=== PATIENT | female | born 1960 | race Caucasian/White ===

== ENCOUNTER → 2024-03-26 | Outpatient (CLI) | payer MEDICARE, MEDICAID, SELFPAY ==
[2024-03-24 10:59] LABS: Anion Gap 8 (7-16); BUN/Creatinine Ratio 26 Ratio (12-20); Blood Urea Nitrogen 21 mg/dL (9-23); Calcium 10.3 mg/dL (8.3-10.6); Calcium (Corrected) 10.3 mg/dL (8.5-10.1); Carbon Dioxide 28.4 mMol/L (20.0-31.0); Chloride 103 mMol/L (98-107); Creatinine (Component) 0.8 mg/dL (0.6-1.3); Glucose 115 mg/dL (74-106); Osmolality,Calculated 281 (275-295); Phosphorous 3.5 mg/dL (2.4-5.1); Potassium 4.4 mMol/L (3.4-5.1); Sodium 139 mMol/L (136-145); eGFR > 60 See Note
--- NOTE | 2024-03-26 13:00 | XR_ITS ---
Examination: CT abdomen with intravenous contrast CT pelvis with intravenous contrast 2-D coronal reconstructions 2-D sagittal reconstructions Date and time of exam:March 26, 2024 1456 hours INDICATIONS: Abdominal pain with nausea beginning 2 weeks ago. CTDI: vol (mGy) 16.5 DLP: (mGycm) 986 Technique: Multiple axial sections of the abdomen and pelvis have been obtained. 64 slice high-resolution scanner used. 3 mm axial sections have been obtained, post intravenous injection 60 cc [id number]-[id number] 2-D sagittal, coronal reconstructions obtained. Low dose protocols were performed. One or more of the following dose reduction techniques were used; automated exposure control, adjustment of the mA and/or KV according to patient size, use of iterative reconstruction technique. Findings: No focal liver or splenic lesions Multiple gallstones No pancreatic mass Aorta normal size No hydronephrosis renal or ureteral calculi Aorta normal size Normal appendix No bowel obstruction or diverticulitis Urinary bladder intact Absent uterus No pelvic mass Moderate osteopenia IMPRESSION: Cholelithiasis No renal or ureteral calculi, no hydronephrosis Normal appendix No bowel obstruction diverticulitis or free air
== END | disposition home or self-care (01) ==
LOC: SCAT 12:50
PROVIDERS: PCP Physician Assistant; Referring Provider Physician Assistant; Visit Provider Physician Assistant
DX: K80.20 Calculus of gallbladder without cholecystitis without obstruction (principal); R10.9 Unspecified abdominal pain
CPT/HCPCS: 36415; 74177; 80069; A4649; Q9967

== ENCOUNTER 2024-04-14 06:25 | Day surgery (SDC) | payer MEDICARE, MEDICAID, SELFPAY ==
--- NOTE | 2024-04-10 10:02 | EKG_ITS ---
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
[2024-04-10 10:16] VITALS: BMI 37.0
[2024-04-10 12:20] LABS: Basophils % (Auto) 1 % (0-2.5); Eosinophils # (Auto) 0.1 Thou/mm3 (0.0-0.5); Eosinophils % (Auto) 1 % (0-10); Hematocrit 38.8 % (36.0-46.0); Hemoglobin 12.8 g/dL (12.0-16.0); Immature Granulocytes % (Auto) 0 % (0-0); Immature Granulocytes Auto 0.02 Thou/mm3 (0.00-0.00); Lymphocytes % (Auto) 31 % (10-50); Mean Corpuscular Hemoglobin 28.8 pg (25.0-35.0); Mean Corpuscular Volume 87 fL (80-100); Monocytes # (Auto) 0.5 Thou/mm3 (0.0-0.8); Monocytes % (Auto) 8 % (0-12); Neutrophils # (Auto) 3.9 Thou/mm3 (1.8-7.7); Neutrophils % (Auto) 60 % (37-80); Nucleated Red Blood Cell % 0 /100 WBC (0); Platelet Count 278 Thou/mm3 (140-440); RDW Standard Deviation 48.4 fL (36.4-46.3); Red Blood Count 4.44 Miln/mm3 (4.00-5.20); White Blood Count 6.5 Thou/mm3 (3.6-11.0)
[2024-04-10 12:29] LABS: Alanine Aminotransferase 14 U/L (10-49); Albumin, Serum 4.4 gm/dL (3.4-4.8); Albumin/Globulin Ratio 1.9 (1.2-2.2); Alkaline Phosphatase 78 U/L (46-116); Anion Gap 4 (7-16); Aspartate Amino Transferase < 10 U/L (0-34); BUN/Creatinine Ratio 26 Ratio (12-20); Bilirubin,Total 0.3 mg/dL (0.3-1.2); Blood Urea Nitrogen 23 mg/dL (9-23); Carbon Dioxide 29.2 mMol/L (20.0-31.0); Chloride 110 mMol/L (98-107); Creatinine (Component) 0.9 mg/dL (0.6-1.3); Estimated Creatinine Clearance 75.4 mL/min (>60); Globulin 2.3 gm/dL (2.3-3.5); Glucose 107 mg/dL (74-106); Osmolality,Calculated 288 (275-295); Potassium 4.4 mMol/L (3.4-5.1); Sodium 143 mMol/L (136-145); Total Protein 6.7 gm/dL (5.7-8.2); eGFR > 60 See Note
[2024-04-14] VITALS (8 sets, daily range): BP systolic 148–167; BP diastolic 68–103; PULSE 70–81; RESP 12–20; TEMP 36.1–36.2; O2SAT 93–96; BMI 36.8
--- NOTE | 2024-04-14 06:47 | EKG_ITS ---
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
--- NOTE | 2024-04-14 09:29 | SUR.PHASEI ---
pt received from OR in recovery bay 5. pt asleep but responds to voice, breahting unlabored on 4l nc. v/s stable. pt dressing to abd dermabond x4 ports cdi. report received from Amy RIVERA, Dr. Pastor, and Jeanette POST.
[2024-04-14] MEDS: fentaNYL CIT INJ 50 mCg/ML AMP 2ML IV ×2 (09:46→10:13)
--- NOTE | 2024-04-14 09:52 | SUR.PHASEI ---
pt able to tolerate oral fluids without difficulty swallowing or nausea/vomiting.
--- NOTE | 2024-04-14 09:56 | ESOP_ITS ---
Date of Procedure 04/14/24 Pre Op Diagnosis Symptomatic cholelithiasis Post Op Diagnosis Cholelithiasis with cholecystitis Procedure Laparoscopic cholecystectomy Findings Moderately distended gallbladder filled with stones and chronic cholecystitis Procedure Description Patient was brought into the operating room in supine position. After administration of general endotracheal anesthesia abdomen was prepped and draped in standard surgical manner. A Veress needle was inserted through the umbilicus and pneumoperitoneum was obtained up to 15 mmHg. The Veress needle was then removed, a 5 mm infraumbilical incision was made and the 5mm trocar was inserted. Laparoscopic camera was placed. Under direct visualization a laparoscopic camera a 10 mm trocar was placed in subxiphoid and two 5 mm trocars placed in right upper quadrant. The gallbladder was identified and was noted to be moderately distended filled with stones with evidence of chronic cholecystitis. It was retracted cephalad and laterally. Dissection started near the infundibulum of gallbladder where cystic duct and gallbladder junction clearly identified. The cystic duct was circumferentially dissected off the peritoneum and surrounding inflammatory tissue. The critical view of safety was clearly demonstrated. Cystic duct was then divided between 2 endoclips proximally and one distally. The cystic artery was similarly dissected and divided. The gallbladder was then from the liver bed using electrocautery. The gallbladder was then placed inside an Endo Catch and removed from the abdomen utilizing subxiphoid trocar site. The area was copiously and thoroughly washed and irrigated, all the fluid was suctioned and the suction fluid returned clear. Hemostasis achieved using electrocautery. Endoclips noted be in place and intact without any bleeding or any leakage. Hemostasis was adequate and satisfactory. The subxiphoid trocar sites fascial defect was closed with 0 Vicryl using Endo Closure device. Instruments and trocars removed, pneumoperitoneum was evacuated and the incisions closed with 4- 0 Monocryl in subcuticular fashion. Instrument needle and sponge counts were all reported to be correct X2. Patient tolerated the procedure well, was extubated, breathing spontaneously and without difficulty and was transferred to postanesthesia care in stable condition. Anesthesia GETA and local Pathology / specimen Other (Gallbladder and contents) Estimated Blood Loss 10 Condition Stable Disposition PACU Surgeon Noel Lakhani MD Surgical Staff Operation Date: 04/14/24 08:30 Case Staff Anesthesiologist: Wood Pastor RNclinical program coordinator: Nicole Morley
--- NOTE | 2024-04-14 10:48 | SUR.PHASEII ---
pt awake and alert, breathing unlabored on room air. v/s stable. pt dressing to abd dermabond x4 cdi. pt able to ambulate to wheelchair with steady gait. d/c instructions given with daughter Laury in room, all questions answered. pt d/c via wheelchair with all belongings.
== END 2024-04-14 10:48 | disposition home or self-care (01) ==
PROVIDERS: PCP Physician Assistant; Referring Provider Surgery; Visit Provider Surgery
PROC: 0FT44ZZ Resection of Gallbladder, Percutaneous Endoscopic Approach (ICD-10-PCS; CPT 47562; principal; 2024-04-14 08:30)
DX: K80.10 Calculus of gallbladder with chronic cholecystitis without obstruction (principal); Z01.810 Encounter for preprocedural cardiovascular examination
CPT/HCPCS: 47562; 36415; 80053; 85025; 93005; A4217; A4649; J0131; J0694; J1100; J2371; J2405; J2704; J3010; J3490; A9270; J1805

== ENCOUNTER → 2024-04-28 | Outpatient (CLI) | payer MEDICARE, MEDICAID, SELFPAY ==
--- NOTE | 2024-04-28 13:40 | XR_ITS ---
Examination: Bone densitometry Date and time of exam:April 28, 2024 1352 hours INDICATIONS: Menopause age 50 hysterectomy age 52 diabetic vitamin D 10 years Technique: Lumbar spine and hip total bone mineralization values of an calculated. Peak reference and age match control results have been displayed. Findings: Lumbar spine total bone mineralization is1.216 gm/cm2. This is 1.5 standard deviations above peak reference. This is 3.2 standard deviations above age-matched controls. Hip total bone mineralization is 0.899 gm/cm2 This is 0.4 standard deviations below peak reference. This is 0.8 standard deviations above age-matched controls Impression: There is normal mineralization based on lumbar spine measurements. There is osteopenia based on hip measurements Lumbar mineralization is increased 1.2% compared with July 14, 2014 Hip mineralization is increased 2.7% compared with July 14, 2014
== END | disposition home or self-care (01) ==
LOC: CDIM 13:29
PROVIDERS: Referring Provider Physician Assistant; Visit Provider Physician Assistant
DX: M85.89 Other specified disorders of bone density and structure, multiple sites (principal)
CPT/HCPCS: 77080

== ENCOUNTER → 2024-11-25 | Outpatient (CLI) | payer MEDICARE, MEDICAID, SELFPAY ==
--- NOTE | 2024-11-25 11:30 | XR_ITS ---
Examination: CT abdomen and pelvis without contrast. Coronal 3-D reconstructions. Sagittal 2-D reconstructions. Date and time of exam:November 25, 2024, 1134 hours COMPARISON: March 26, 2024 INDICATIONS: Lower abdominal pain beginning 2 months ago, history gallstones CTDI: vol (mGy): 14.3 DLP: (mGycm): 777 Technique: Axial images of the abdomen have been obtained, 3 mm slice thickness Intravenous contrast material has not been administered. Low dose protocols were performed. One or more of the following dose reduction techniques were used; automated exposure control, adjustment of the mA and/or KV according to patient size, use of iterative reconstruction technique. Findings: No visualized liver or splenic lesions Absent gallbladder There are multiple stones in the common hepatic common bile duct all of which appear to be approximately 7 mm in dimension No pancreatic mass Aorta normal size No hydronephrosis 25 mm left renal cyst 25 mm fat-containing umbilical hernia Normal appendix No bowel obstruction No diverticulitis Urinary bladder intact Small fat-containing umbilical hernia IMPRESSION: Recommend MRCP follow-up to confirm multiple stones in the common hepatic common bile duct
== END | disposition home or self-care (01) ==
PROVIDERS: Referring Provider Physician Assistant; Visit Provider Physician Assistant
DX: K80.50 Calculus of bile duct without cholangitis or cholecystitis without obstruction (principal)
CPT/HCPCS: 74176

== ENCOUNTER 2025-01-09 17:34 | Emergency (ER) | payer MEDICARE, MEDICAID, SELFPAY ==
[2025-01-09 18:29] VITALS: BP 154/90; PULSE 81; RESP 16; TEMP 36.4; O2SAT 100; BMI 37.6
--- NOTE | 2025-01-09 18:31 | EKG_ITS ---
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
--- NOTE | 2025-01-09 18:35 | PD.EDABDPN ---
ED Abdominal Pain RME/HPI General Chief Complaint: Abdominal Pain Stated complaint: ABD DISTENTION X 1 MONTH Time seen by provider: 01/09/25 18:31 Arrival date/time: 01/09/25 17:34 RME / HPI RME / HPI narrative: CC: Abdominal Pain Patient is 64 year old female with a past medical history of HTN, Diabetes Mellitus Type 2-recently on Mounjaro that was discontinued 2 weeks, who presented to the emergency room via private vehicle with chief complain of right upper quadrant pain and complaining of increased abdominal distention. March 2024 cholecystectomy but patient continues to complain of right upper quadrant pain. Denied constipation. Denied diarrhea. Denied change in stool consistency. Denied blood in stool. Previous surgeries include hysterectomy and cholecystectomy, no history of SBO. One episode of emesis at home, no blood reported. Denied chest pain. Denied fevers at home. Denied pain with urination. Related Data Home Medications ?Medication ?Instructions ?Recorded ?Confirmed furosemide 20 mg tablet 20 mg PO QAM 05/20/20 04/10/24 montelukast 10 mg tablet 10 mg PO QDAY 05/20/20 04/10/24 albuterol sulfate 90 mcg/actuation 2 inh inhalation Q6H PRN shortness 04/10/24 04/10/24 breath activated powder of breath or wheezing inhaler,sensor amlodipine 5 mg tablet 5 mg PO QDAY 04/10/24 04/10/24 ibuprofen 800 mg tablet 800 mg PO Q8H PRN pain 04/10/24 04/10/24 loratadine 10 mg tablet 10 mg PO QDAY 04/10/24 04/10/24 metformin 500 mg tablet 500 mg PO BID 04/10/24 04/10/24 pioglitazone 30 mg tablet (Actos) 30 mg PO QDAY 04/10/24 04/10/24 losartan 50 mg tablet 50 mg PO QDAY 04/14/24 04/14/24 Previous Rx's ?Medication ?Instructions ?Recorded docusate sodium 100 mg capsule 100 mg PO BID #40 caps 04/14/24 (Colace) polyethylene glycol 3350 17 4 g PO QDAY PRN laxative effect 01/09/25 gram/dose oral powder (Miralax) #238 grams Allergies Allergy/AdvReac Type Severity Reaction Status Date / Time magnesium sulfate (From Allergy Verified 01/09/25 17:38 Epsom Salt) wool Allergy Verified 01/09/25 17:38 Review of Systems Review of Systems Narrative Review of Systems: General appearance: NO weight change, NO fatigue, NO weakness, NO fever, NO chills, NO night sweats, No cough Skin: NO rash, NO itching, NO sores, NO moles HEENT: NO Trauma, NO nausea, NO vomiting, NO visual changes, NO blurry vision, NO double vision, NO tinnitus, NO vertigo, NO ear discharge, NO rhinorrhea, NO stuffiness, NO sneezing, NO allergy, NO epistaxis. NO Hoarseness, NO sore throat, NO swollen neck. Cardiac: NO Palpitations, NO dyspnea on exertion, NO orthopnea, NO paroxysmal nocturnal dyspnea, NO edema Respiratory: NO Shortness of Breath, NO Wheezing, NO Cough, NO Sputum, NO hemoptysis GI:NO appetite, NO nausea, NO vomiting, NO dysphagia, NO changes in bowel frequency, NO stool color, NO diarrhea, NO constipation, NO hemetemesis, NO hemorrhoids, NO melena, NO hematechezia, Yes R. Upper abdominal pain, NO jaundice Renal: NO frequency, NO hesitancy, NO urgency, NO hematuria, NO nocturia, NO incontinence MSK: NO muscle weakness, NO gout, NO arthritis, NO muscle stiffness Neuro: NO headaches, NO tremors, NO weakness, NO paralysis, NO seizures, NO loss of consciousness, NO numbness. Hem: NO anemia, NO easy bruising/bleeding, NO petechiae, NO purpura Endo: NO heat/cold intolerance, NO excessive sweating, NO polyuria, NO polydipsia, NO polyphagia, NO thyroid problems, NO diabetes Pysch: NO mood, NO anxiety, NO depression ED Exam Narrative Physical exam: General Appearance: Alert & Oriented X3, well-nourished female who is lying in bed in mild distress HEENT: Skull symmetrical and atraumatic. Conjunctivae pink and moist. Pupils equal, round, reactive to light and accommodation (PERRL). External ear without lesion or discharge. Straight, nares patient, mucosa pink, no discharge. Cardio: Normal Rate and Rhythm with S1 and S2 heart sounds. No murmurs or extra heart sounds auscultated. No bruits on carotid auscultation. No peripheral edema or cyanosis. Lungs: Symmetric with good expansion. Chest and back non-tender. Breath sounds vesicular without crackles, wheezing or rhonchi Abdomen: mild tenderness-localized to R. upper quadrant, Mild distention & tympanic, Normal Reactive Bowel Sounds, Aguero Positive Neuro: Alert, cooperative, oriented to person, place, and time. Speech clear. CN grossly intact. Upper motor strength 5/5 and Lower motor strength 5/5. Sensation intact. Course Course Course Narrative: CBC CMP Lipase EKG US gallbladder KUB Quality Measures none Orders Category Date Time Status EKG (ED ONLY) *Do not use* NOW Care 01/09/25 18:31 Completed EKG (ED Only) Stat Exams 01/09/25 18:31 Draft KUB [XR abdomen 1V] Stat Exams 01/09/25 19:06 Completed US gall bladder Stat Exams 01/09/25 18:38 Completed B-Type Natriuretic Peptide Stat Lab 01/09/25 18:53 Completed CBC Stat Lab 01/09/25 18:53 Completed Comprehensive Metabolic Panel Stat Lab 01/09/25 18:53 Completed Drug Screen,Urine Stat Lab 01/09/25 19:06 Completed Lipase Stat Lab 01/09/25 18:53 Completed Magnesium Stat Lab 01/09/25 18:53 Completed Urinalysis, C/S if Indicated Stat Lab 01/09/25 19:06 Completed Famotidine [Pepcid] Med 01/09/25 18:32 Discontinued 20 mg PO X1 ONE Vital Signs Vital signs: Vital Signs Temperature 97.6 F 01/09/25 18:29 Pulse Rate 81 01/09/25 18:29 Respiratory Rate 16 01/09/25 18:29 Blood Pressure 154/90 H 01/09/25 18:29 Pulse Oximetry (%) 100 01/09/25 18:29 Oxygen Delivery Method Room Air 01/09/25 18:29 Abdominal Pain MDM Patient data External records reviewed:: [facility] previous records Clinical information provided by:: patient Social determinants that could affect healthcare access:: mental health Patient has the following chronic illnesses:: HTN Diabetes Mellitus How is presenting disease/condition affected by chronic disease/condition?: exacerbated by (diabetes) Evaluation data The following diagnostics were reviewed and interpreted by me:: lab results, radiology exam(s) and EKG tracing(s) Lab and/or radiology exams considered but not ordered:: None Interpretation Summary: Patient is a 64-year-old female with developmental delay, hypertension, diabetes mellitus type 2 recently on Mounjaro but discontinued 2 weeks ago who presented with a chief complaint of right upper quadrant pain status post cystectomy March 2024. CBC no leukocytosis. CMP electrolytes within normal limits and glucose 115. Mild hypercalcemia 10.8. UA positive for esterase WBC 6 bacteria rare and epithelial cells thus likely UTI. UTOX negative. Concern for gallstone given previous abdomen CT on November 2024. Repeat ultrasound of gallbladder shows no CBD dilation and no stones. Fatty liver noted. KUB large amount of stool throughout colon. Abdominal tenderness likely secondary to constipation. - The patient's plan was discussed with attending Dr. Tyree Thomason MD PGY2 Internal Medicine Medications / Prescriptions Medications or Prescriptions considered but not ordered:: none Medication administrations:: Medication Administration History Discontinued Medications Famotidine (Famotidine 20 Mg Tablet) 20 mg PO X1 ONE Stop: 01/09/25 18:33 Last Admin: 01/09/25 18:53 Dose: 20 mg Documented By: LEXIE same as above Consultations Consultation(s) initiated? (list below): No Diagnosis Differential diagnosis abdominal pain: constipation, gastroenteritis, pancreatitis, small bowel obstruction and other (retained stone in common bile duct (ERCP?)) Most likely diagnosis given after review of the tests above:: Patient is a 64-year-old female with developmental delay, hypertension, diabetes mellitus type 2 recently on Mounjaro but discontinued 2 weeks ago who presented with a chief complaint of right upper quadrant pain status post cystectomy March 2024. CBC no leukocytosis. CMP electrolytes within normal limits and glucose 115. Mild hypercalcemia 10.8. UA positive for esterase WBC 6 bacteria rare and epithelial cells thus likely UTI. UTOX negative. Concern for gallstone given previous abdomen CT on November 2024. Repeat ultrasound of gallbladder shows no CBD dilation and no stones. Fatty liver noted. KUB large amount of stool throughout colon. Abdominal tenderness likely secondary to constipation. #Constipation - The patient's plan was discussed with attending Dr. Tyree Thomason MD PGY2 Internal Medicine Admission Indicated Admission indicated?: not indicated Admission Request Was there a request for admission?: No Disposition Plan Disposition Plan: Discharge Discharge Attestation Discharge Attestation: The patient and all family members were given an opportunity to ask questions and understood the discharge instructions. Discharge instructions specifically effects, indications for sooner follow up or return to the emergency department, and the expected course of current diagnosis. Patient condition: Stable Discharge Plan Plan Patient Disposition: HOME (Self Care) Patient condition on transfer: Stable Health Concerns: Instructions: -You have been diagnosed with constipation based on all your labs and images of your abdomen. -No Stones in your ultrasound of your hepatic ducts. No gallbladder. -Please increase fiber intake to your daily dietary intake, may take Mirlax. -If your symptoms worsen please follow up with your surgeon who removed your gallbladder, Dr. Lakhani. -Please follow up with your primary care provider within one week of discharge -If your symptoms worsen,please seek immediate medical attention and return to your nearest emergency room -If you do not have a primary care provider, [facility] [address] [place] [address], Prescriptions/Referrals Prescriptions/Med Rec: New polyethylene glycol 3350 [Miralax] 17 gram/dose powder 4 g PO QDAY PRN (Reason: laxative effect) Qty: 238 0RF Continued montelukast 10 mg Tablet 10 mg PO QDAY furosemide 20 mg Tablet 20 mg PO QAM metformin 500 mg tablet 500 mg PO BID loratadine 10 mg tablet 10 mg PO QDAY albuterol sulfate 90 mcg/actuation aero powdr breath act w/sensor 2 inh inhalation Q6H PRN (Reason: shortness of breath or wheezing) amlodipine 5 mg tablet 5 mg PO QDAY ibuprofen 800 mg tablet 800 mg PO Q8H PRN (Reason: pain) pioglitazone [Actos] 30 mg tablet 30 mg PO QDAY losartan 50 mg tablet 50 mg PO QDAY docusate sodium [Colace] 100 mg capsule 100 mg PO BID Qty: 40 0RF Discontinued hydrocodone-acetaminophen 5-325 mg tablet 1 tab PO Q6H MDD 4 PRN (Reason: pain (scale score 7-10)) Qty: 15 0RF Problem List Clinical Impression: Constipation Patient/Caregiver Discharge Instructions Education Materials: Treating Constipation, ED Constipation (Adult) Print Language: Georgian Stand Alone Forms: Elicia Award Info., Patient Portal Info Letter
--- NOTE | 2025-01-09 18:38 | XR_ITS ---
Examination: Abdomen sonogram, Limited Date and time of exam: January 09, 2025, 1948 hours INDICATION: Cholecystectomy February 2024, right upper abdominal pain beginning 2 weeks ago. Technique: Real-time godoy scale transabdominal sonographic images of the upper abdomen obtained. Findings: Absent gallbladder Common bile duct 0.6 cm no stones Pancreatic head 2.9 cm Liver 17 cm fatty infiltration no focal liver lesions Normal hepatopetal portal venous flow Patent IVC IMPRESSION: Absent gallbladder Normal common bile duct Mild hepatomegaly fatty infiltration
[2025-01-09] MEDS: FAMOTIDINE 20 MG TABLET PO (18:53)
--- NOTE | 2025-01-09 19:06 | XR_ITS ---
Examination: Abdomen AP single view Technique: AP portable supine abdomen, single view Exam date and time: December hours INDICATIONS: Abdominal pain and constipation months. FINDINGS: Large amounts of stool throughout the colon No obstruction No free air Surgical clips upper right abdomen IMPRESSION: Large amount of stool throughout the colon
[2025-01-09 19:24] LABS: Collection Type, Urine Clean Catch
[2025-01-09 19:35] LABS: Basophils # (Auto) 0.1 Thou/mm3 (0.0-0.2); Basophils % (Auto) 1 % (0-2.5); Eosinophils # (Auto) 0.1 Thou/mm3 (0.0-0.5); Eosinophils % (Auto) 2 % (0-10); Hematocrit 41.9 % (36.0-46.0); Hemoglobin 13.3 g/dL (12.0-16.0); Immature Granulocytes Auto 0.04 Thou/mm3 (0.00-0.00); Lymphocytes # (Auto) 2.8 Thou/mm3 (1.0-4.8); Lymphocytes % (Auto) 38 % (10-50); Mean Corpuscular HGB Conc 31.7 g/dl (31.0-37.0); Mean Corpuscular Hemoglobin 28.0 pg (25.0-35.0); Mean Corpuscular Volume 88 fL (80-100); Monocytes # (Auto) 0.5 Thou/mm3 (0.0-0.8); Monocytes % (Auto) 7 % (0-12); Neutrophils # (Auto) 3.9 Thou/mm3 (1.8-7.7); Neutrophils % (Auto) 52 % (37-80); Nucleated Red Blood Cell # 0.00 Thou/mm3 (0.00-0.00); Nucleated Red Blood Cell % 0 /100 WBC (0); Platelet Count 323 Thou/mm3 (140-440); RDW Standard Deviation 46.8 fL (36.4-46.3); Red Blood Count 4.75 Miln/mm3 (4.00-5.20); White Blood Count 7.4 Thou/mm3 (3.6-11.0)
[2025-01-09 19:45] LABS: Amorphous Crystals,Urine Present (Absent); Bacteria,Urine Rare; Bilirubin,Urine Negative (Negative); Blood,Urine Negative (Negative); Clarity,Urine Clear (Clear/Hazy); Color,Urine Lt-Yellow (Lt Yel-Yel); Culture Indicated,Urine Not Indicated; Glucose, Urine Negative (Negative); Ketones,Urine Negative (Negative); Leukocyte Esterase,Urine Positive (Negative); Nitrite,Urine Negative (Negative); PH,Urine 6.0 (5.0-7.0); Protein,Urine Negative (Neg - Trace); RBC,Urine 2 /hpf (0-3); Specific Gravity,Urine 1.014 (1.001-1.035); Squamous Epithelial Cell,Urine 12 /hpf (0-5); Urobilinogen,Urine Negative mg/dL (0.0-1.0); WBC,Urine 6 /hpf (0-5)
[2025-01-09 19:56] LABS: B-Type Natriuretic Peptide < 20 pg/mL (0-100)
[2025-01-09 19:58] LABS: Alanine Aminotransferase 18 U/L (10-49); Albumin, Serum 5.1 gm/dL (3.4-4.8); Albumin/Globulin Ratio 2.2 (1.2-2.2); Alkaline Phosphatase 103 U/L (46-116); Anion Gap 11 (7-16); Aspartate Amino Transferase 17 U/L (0-34); BUN/Creatinine Ratio 16 Ratio (12-20); Bilirubin,Total 0.3 mg/dL (0.3-1.2); Blood Urea Nitrogen 13 mg/dL (9-23); Calcium 10.8 mg/dL (8.3-10.6); Calcium (Corrected) 10.8 mg/dL (8.5-10.1); Carbon Dioxide 25.5 mMol/L (20.0-31.0); Chloride 106 mMol/L (98-107); Creatinine (Component) 0.8 mg/dL (0.6-1.3); Estimated Creatinine Clearance 81.4 mL/min (>60); Globulin 2.3 gm/dL (2.3-3.5); Glucose 115 mg/dL (74-106); Lipase 35 U/L (12-53); Magnesium 2.4 mg/dL (1.6-2.6); Osmolality,Calculated 284 (275-295); Potassium 4.1 mMol/L (3.4-5.1); Sodium 142 mMol/L (136-145); Total Protein 7.4 gm/dL (5.7-8.2); eGFR > 60 See Note
[2025-01-09 20:26] LABS: Amphetamine/Methamp Scrn,U Negative (Negative); Barbiturate Screen,Urine Negative (Negative); Benzodiazepines Screen,Urine Negative (Negative); Benzoylecgonine Screen, Ur Negative (Negative); Fentanyl Screen,Urine Negative (Negative); Opiate Screen,Urine Negative (Negative); THC Screen,Urine Negative (Negative)
[2025-01-09 21:34] VITALS: RESP 18
== END 2025-01-09 21:34 | disposition home or self-care (01) ==
PROVIDERS: Emergency Provider Emergency Medicine; PCP Physician Assistant
DX: K59.00 Constipation, unspecified (principal); R10.11 Right upper quadrant pain; I49.8 Other specified cardiac arrhythmias; I10 Essential (primary) hypertension; K76.0 Fatty (change of) liver, not elsewhere classified; E83.52 Hypercalcemia
CPT/HCPCS: 36415; 74018; 76705; 80053; 80307; 81001; 83690; 83735; 83880; 85025; 93005; 99283; A9270

== ENCOUNTER 2025-02-17 18:05 | Emergency (ER) | payer MEDICARE, MEDICAID, SELFPAY ==
[2025-02-17 19:07] VITALS: BP 166/94; PULSE 85; RESP 18; TEMP 36.8; O2SAT 97; BMI 36.6
--- NOTE | 2025-02-17 19:10 | XR_ITS ---
EXAMINATION: PA chest single view TECHNIQUE: Upright PA chest single view February 17, 2025, 1936 hours INDICATION: Intermittent mid and upper chest pain beginning 1 month ago FINDINGS: Normal heart size Minor subsegmental atelectasis in the left lower lung zone No pneumonia or pulmonary edema Moderate osteopenia IMPRESSION: No pneumonia or pulmonary edema
--- NOTE | 2025-02-17 19:10 | EKG_ITS ---
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1960 Requested By: Keara Harry Order Number: [id number] Reading MD: Keara Harry Measurements Intervals [place] Rate: 79 P: 44 CO: 161 QRS: -26 QRSD: 77 T: 24 QT: 365 QTc: 419 Interpretive Statements SINUS RHYTHM WITH SINUS ARRHYTHMIA LOW QRS VOLTAGE IN PRECORDIAL LEADS [QRS DEFLECTION < 1.0 mV IN CHEST LEADS] POSSIBLE ANTERIOR MYOCARDIAL INFARCTION , PROBABLY OLD [30 ms Q WAVE IN V3/V4, OR R < 0.2 mV IN V4] INFERIOR MYOCARDIAL INFARCTION , PROBABLY OLD [40+ ms Q WAVE AND/OR ST/T ABNORMALITY IN II/aVF] Compared to ECG 01/09/2025 18:42:14 Myocardial infarct finding now present /store/S0/[id number]
[2025-02-17 19:32] LABS: Basophils # (Auto) 0.1 Thou/mm3 (0.0-0.2); Basophils % (Auto) 1 % (0-2.5); Eosinophils # (Auto) 0.1 Thou/mm3 (0.0-0.5); Eosinophils % (Auto) 2 % (0-10); Hematocrit 42.2 % (36.0-46.0); Hemoglobin 13.5 g/dL (12.0-16.0); Immature Granulocytes Auto 0.02 Thou/mm3 (0.00-0.00); Lymphocytes # (Auto) 3.0 Thou/mm3 (1.0-4.8); Lymphocytes % (Auto) 40 % (10-50); Mean Corpuscular HGB Conc 32.0 g/dl (31.0-37.0); Mean Corpuscular Hemoglobin 28.2 pg (25.0-35.0); Mean Corpuscular Volume 88 fL (80-100); Monocytes # (Auto) 0.5 Thou/mm3 (0.0-0.8); Monocytes % (Auto) 7 % (0-12); Neutrophils # (Auto) 3.8 Thou/mm3 (1.8-7.7); Neutrophils % (Auto) 50 % (37-80); Nucleated Red Blood Cell # 0.00 Thou/mm3 (0.00-0.00); Nucleated Red Blood Cell % 0 /100 WBC (0); Platelet Count 321 Thou/mm3 (140-440); RDW Standard Deviation 46.8 fL (36.4-46.3); Red Blood Count 4.78 Miln/mm3 (4.00-5.20); White Blood Count 7.5 Thou/mm3 (3.6-11.0)
[2025-02-17 19:51] LABS: B-Type Natriuretic Peptide < 20 pg/mL (0-100)
[2025-02-17 19:54] LABS: Collection Type, Urine Voided
[2025-02-17 19:55] LABS: Alanine Aminotransferase 13 U/L (10-49); Albumin, Serum 4.9 gm/dL (3.4-4.8); Albumin/Globulin Ratio 1.7 (1.2-2.2); Alkaline Phosphatase 105 U/L (46-116); Anion Gap 6 (7-16); Aspartate Amino Transferase 13 U/L (0-34); BUN/Creatinine Ratio 13 Ratio (12-20); Bilirubin,Total 0.3 mg/dL (0.3-1.2); Blood Urea Nitrogen 10 mg/dL (9-23); Calcium 10.4 mg/dL (8.3-10.6); Calcium (Corrected) 10.4 mg/dL (8.5-10.1); Carbon Dioxide 27.6 mMol/L (20.0-31.0); Chloride 106 mMol/L (98-107); Creatinine (Component) 0.8 mg/dL (0.6-1.3); Estimated Creatinine Clearance 83.1 mL/min (>60); Globulin 2.9 gm/dL (2.3-3.5); Glucose 121 mg/dL (74-106); Osmolality,Calculated 279 (275-295); Potassium 4.1 mMol/L (3.4-5.1); Sodium 140 mMol/L (136-145); Thyroid Stimulating Hormone 5.85 uIU/mL (0.55-4.78); Total Protein 7.8 gm/dL (5.7-8.2); Troponin I < 0.002 ng/mL (0.0-0.045); eGFR > 60 See Note
[2025-02-17 20:10] LABS: Bilirubin,Urine Negative (Negative); Blood,Urine Negative (Negative); Clarity,Urine Clear (Clear/Hazy); Color,Urine Lt-Yellow (Lt Yel-Yel); Glucose, Urine Negative (Negative); Ketones,Urine Negative (Negative); Leukocyte Esterase,Urine Positive (Negative); Nitrite,Urine Negative (Negative); PH,Urine 7.5 (5.0-7.0); Protein,Urine Negative (Neg - Trace); RBC,Urine 1 /hpf (0-3); Specific Gravity,Urine 1.013 (1.001-1.035); Squamous Epithelial Cell,Urine < 1 /hpf (0-5); Urobilinogen,Urine Negative mg/dL (0.0-1.0); WBC,Urine 1 /hpf (0-5)
[2025-02-17 20:16] LABS: HCG Qualitative,Urine Negative
--- NOTE | 2025-02-17 20:32 | PD.EDCHEST ---
ED Chest Pain RME/HPI General Chief Complaint: Chest Pain Stated Complaint: CHEST PAIN X 1 MO. COMES & GOES Time Seen by Provider: 02/17/25 18:16 Arrival date/time: 02/17/25 18:05 This is a case of 64-year-old female with history of hypertension and diabetes came in in the emergency room due to on and off chest pain patient was seen by the primary care physician and was scheduled to see a manual plate filler patient is fine until today patient again started to have chest pain and palpitation thus decided to sought consult here in the emergency room no shortness of breath no other symptoms noted Limitations: no limitations Related Data Home Medications ?Medication ?Instructions ?Recorded ?Confirmed furosemide 20 mg tablet 20 mg PO QAM 05/20/20 04/10/24 montelukast 10 mg tablet 10 mg PO QDAY 05/20/20 04/10/24 albuterol sulfate 90 mcg/actuation 2 inh inhalation Q6H PRN shortness 04/10/24 04/10/24 breath activated powder of breath or wheezing inhaler,sensor amlodipine 5 mg tablet 5 mg PO QDAY 04/10/24 04/10/24 ibuprofen 800 mg tablet 800 mg PO Q8H PRN pain 04/10/24 04/10/24 loratadine 10 mg tablet 10 mg PO QDAY 04/10/24 04/10/24 metformin 500 mg tablet 500 mg PO BID 04/10/24 04/10/24 pioglitazone 30 mg tablet (Actos) 30 mg PO QDAY 04/10/24 04/10/24 losartan 50 mg tablet 50 mg PO QDAY 04/14/24 04/14/24 Previous Rx's ?Medication ?Instructions ?Recorded docusate sodium 100 mg capsule 100 mg PO BID #40 caps 04/14/24 (Colace) polyethylene glycol 3350 17 4 g PO QDAY PRN laxative effect 01/09/25 gram/dose oral powder (Miralax) #238 grams aspirin 81 mg capsule 81 mg PO QDAY #14 caps 02/17/25 Allergies Allergy/AdvReac Type Severity Reaction Status Date / Time magnesium sulfate (From Allergy Verified 02/17/25 18:08 Epsom Salt) wool Allergy Verified 02/17/25 18:08 Review of Systems Review of Systems Systems Reviewed: All systems reviewed, normal except as documented Past Medical History Past Medical History NEUROLOGIC: Negative Neurological Disorders or Seizures CARDIAC: Positive Cardiac Disorders and Hypertension; Negative Congestive Heart Failure or Edema RESPIRATORY: Positive Asthma; Negative Chronic Obstructive Pulmonary Disease (COPD) GASTROINTESTINAL: Positive Gastrointestinal Disorders, Gall Bladder Disease and Obesity; Negative Hepatitis GENITOURINARY: Negative Genitourinary Disorders or Renal Disease REPRODUCTIVE: Positive Previous Pregnancies (x 1) MUSCULOSKELETAL: Positive Musculoskeletal Disorders, Arthritis and Scoliosis ENT: Positive Cataracts (bilateral) ENDOCRINE: Positive Endocrine Disorders and Diabetes Mellitus Type 2; Negative Diabetes Mellitus Type 1 HEMATOLOGIC: Negative Blood Disorders or Anemia PSYCHO/SOCIAL: Negative Depression or Anxiety OTHER HISTORY: Positive 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) and Chicken Pox; Negative Hospitalization, Autoimmune Disease, Shingles, Falls, Blood Transfusions, Blood Transfusion Reaction, Anesthesia Reactions or Cancer Family History FAMILY HISTORY: Positive Family Cardiac Disorders, Family Cancer and Family Surgery; Negative Family Psychiatric Problems, Family Respiratory Disorders, Family Gastrointestinal Problems or Family Anesthesia Reaction Surgical History SURGICAL: Positive Hysterectomy and Tubal Ligation; Negative Abdominal Surgery or Joint Replacement Social History SMOKING STATUS: Never smoker ED Exam General Limitations: Present no limitations General appearance: Present alert, in no apparent distress and other (Patient is awake alert oriented not in distress nontoxic looking well-hydrated nourisehd) Head Head exam: Present atraumatic, normocephalic and normal inspection Eye Eye exam: Present normal appearance, PERRL and EOMI ENT ENT exam: Present normal exam, normal oropharynx and mucous membranes moist Neck Neck exam: Present normal inspection, full ROM and trachea midline; Absent tenderness, meningismus, lymphadenopathy or thyromegaly Chest Chest inspection: Present normal inspection and symmetric chest wall rise; Absent tenderness Respiratory Respiratory exam: Present normal lung sounds bilaterally and other (No crackles no rhonchi no rales); Absent respiratory distress, wheezes, stridor, accessory muscle use or prolonged expiratory phase Cardiovascular Cardiovascular exam: Present regular rate, normal rhythm, normal heart sounds and other (No pitting edema); Absent bradycardia, tachycardia, irregular rhythm, systolic murmur or diastolic murmur Abdominal Exam Abdominal exam: Present soft and normal bowel sounds; Absent distention, tenderness, guarding, rebound, rigidity, diminished bowel sounds or organomegaly Extremities Exam Extremities exam: Present normal inspection and full ROM Back Exam Back exam: Present normal inspection and full ROM Neurological Exam Neurological exam: Present alert, oriented X3, CN II-XII intact, normal gait and reflexes normal; Absent motor sensory deficit Psychiatric Psychiatric exam: Present normal affect and normal mood Skin Skin exam: Present warm, dry, intact, normal color and other (Excellent skin turgor) Course Quality Measures none Orders Category Date Time Status EKG (ED ONLY) *Do not use* NOW Care 02/17/25 19:10 Completed EKG (ED Only) Stat Exams 02/17/25 19:10 Draft XR chest 1V Stat Exams 02/17/25 19:10 Completed BNP [B-Type Natriuretic Peptide] Stat Lab 02/17/25 19:20 Completed CBC Stat Lab 02/17/25 19:20 Completed CMP [Comprehensive Metabolic Panel] Stat Lab 02/17/25 19:20 Completed HCG Qualitative,Urine Stat Lab 02/17/25 19:47 Completed TSH [Thyroid Stimulating Hormone] Stat Lab 02/17/25 19:20 Completed Troponin I Stat Lab 02/17/25 19:20 Completed Urinalysis Stat Lab 02/17/25 19:47 Completed Aspirin Med 02/17/25 20:26 Discontinued 325 mg PO X1 ONE Vital Signs Vital signs: Vital Signs Temperature 98.2 F 02/17/25 19:07 Pulse Rate 85 02/17/25 19:07 Respiratory Rate 18 02/17/25 19:07 Blood Pressure 166/94 H 02/17/25 19:07 Pulse Oximetry (%) 97 02/17/25 19:07 Oxygen Delivery Method Room Air 02/17/25 19:07 Chest Pain MDM Narrative MDM Narrative:: This is a case of 64-year-old female with history of hypertension and diabetes came in in the emergency room due to on and off chest pain patient was seen by the primary care physician and was scheduled to see a manual plate filler patient is fine until today patient again started to have chest pain and palpitation thus decided to sought consult here in the emergency room no shortness of breath no other symptoms noted physical examination patient is awake alert oriented not in distress nontoxic looking well-hydrated well nourished lungs sound is clear no crackles no rales no wheezing no retraction no stridor patient heart normal rate regular rhythm no murmur no pitting edema the rest of the physical examination and neurological exam is normal and unremarkable patient vital signs patient BP is slightly elevated 166/94 patient blood pressure was rechecked by me and noted to be 149/80 patient is not tachycardic not tachypneic afebrile and nonhypoxic oxygen saturation is 97% in room air patient initially was given aspirin 325 mg p.o. for chest pain patient blood test showed no leukocytosis no anemia kidney and liver function is normal no electrolyte imbalance patient troponin were negative BNP were negative EKG showed sinus rhythm no ST elevation no depression patient chest x-ray is normal no pneumonia cardiomegaly patient TSH noted to be elevated at 5.85 I discussed with daughter regarding patient condition patient need to see a area plant manager patient TSH was abnormal patient need to have further workup on her thyroid that might cause patient palpitation patient need to have ultrasound of the thyroid and T3-T4 as an outpatient patient also need to follow-up to see a manual plate filler for further evaluation and treatment of chest pain and palpitation for possible echocardiogram stress test and Holter monitor at this time patient is stable to be discharged I gave aspirin 81 mg for 14 days until he saw his primary care physician for her chest pain I discussed with Dr. Montiel regarding patient condition history and physical examination relayed the result of the blood test and imaging he agrees that the patient can be discharged without repeating the troponin patient is stable to be discharged at this point of time Patient was discharged with comfortable condition walking with stable gait. Patient verbalized no further complains explained diagnosis and answered patient question. Patient is comfortable with the proposed management plan including the need to follow up with his/her primary care physician and any specialist if applicable Discussed patient for any urgent condition or worsening sx, He/She needed to go to emergency room immediately or call 911. Patient acknowledge the responsibility to follow up as instructed and to monitor her/his symptoms. For any persistence of the symptoms for more than 3-5 days return precaution advised. Discussed the result of the test and was given printed discharge instruction Patient data External records reviewed:: [facility] previous records Clinical information provided by:: patient Social determinants that could affect healthcare access:: none Patient has the following chronic illnesses:: None How is presenting disease/condition affected by chronic disease/condition?: no chronic disease Evaluation data The following diagnostics were reviewed and interpreted by me:: lab results, radiology exam(s) and EKG tracing(s) Lab and/or radiology exams considered but not ordered:: Reviewed Interpretation Summary: Review Medications / Prescriptions Medications or Prescriptions considered but not ordered:: Give Medication administrations:: Medication Administration History Discontinued Medications Aspirin (Aspirin 325 Mg Tablet) 325 mg PO X1 ONE Stop: 12/24/25 20:27 Given Consultations Consultation(s) initiated? (list below): Yes Consultation #1 (Physician, Specialty, Details): Dr. Montiel pls see my MDM Diagnosis Chest Pain Differential Diagnosis: atypical chest pain, costochondritis and chest pain Most likely diagnosis given after review of the tests above:: Chest pain of unknown etiology palpitation Admission Indicated Admission indicated?: not indicated Explain why admission is indicated or not indicated:: Not indicated Admission Request Was there a request for admission?: No Admission Attestation Admission request attestation: Not indicated Disposition Plan Disposition Plan: Discharge Discharge Attestation Discharge Attestation: The patient and all family members were given an opportunity to ask questions and understood the discharge instructions. Discharge instructions specifically effects, indications for sooner follow up or return to the emergency department, and the expected course of current diagnosis. Patient condition: Stable Discharge Plan Plan Patient Disposition: HOME (Self Care) Patient condition on transfer: Stable Prescriptions/Referrals Prescriptions/Med Rec: New aspirin 81 mg capsule 81 mg PO QDAY Qty: 14 0RF No Action montelukast 10 mg Tablet 10 mg PO QDAY furosemide 20 mg Tablet 20 mg PO QAM polyethylene glycol 3350 [Miralax] 17 gram/dose powder 4 g PO QDAY PRN (Reason: laxative effect) Qty: 238 0RF metformin 500 mg tablet 500 mg PO BID loratadine 10 mg tablet 10 mg PO QDAY albuterol sulfate 90 mcg/actuation aero powdr breath act w/sensor 2 inh inhalation Q6H PRN (Reason: shortness of breath or wheezing) amlodipine 5 mg tablet 5 mg PO QDAY ibuprofen 800 mg tablet 800 mg PO Q8H PRN (Reason: pain) pioglitazone [Actos] 30 mg tablet 30 mg PO QDAY losartan 50 mg tablet 50 mg PO QDAY docusate sodium [Colace] 100 mg capsule 100 mg PO BID Qty: 40 0RF Referrals: Princess Abdullahi PA-C [Primary Care Provider, Family Practice] - In 1 week Problem List Clinical Impression: Chest pain of unknown etiology, Heart palpitations, Abnormal serum thyroid stimulating hormone (TSH) level, Hypertension, uncontrolled Patient/Caregiver Discharge Instructions Education Materials: Thyroid-Stimulating Hormone, ED Chest Pain, Uncertain Cause, ED High Blood Pressure ..., ED Palpitations Additional Instructions: It is very important to see a manual plate filler in 2 days for reevaluation of your chest pain and palpitation for possible echocardiogram stress test and Holter monitor it is also important to see an area plant manager for your elevated TSH for possible ultrasound of your thyroid and further evaluation of thyroid test for any recurrence persistent worsening symptoms or any emergent concern call 911 or go to the nearest emergency room take your medication as directed it is also important to follow-up with your primary care physician to be referred on the above specialist and to monitor your blood pressure and to review your medication for hypertension continue to take your medication for hypertension check your blood pressure twice a day and if your blood pressure greater than 160/100 or become symptomatic return to the emergency room immediately or call 911 keep hydrated Print Language: Cam[place]onian Stand Alone Forms: Elicia Award Info., Patient Portal Info Letter PA/ADOPTION MANAGER Supervising Physician JEREMY/MACARIO Supervising Physician: Dr. Montiel
== END 2025-02-17 20:42 | disposition home or self-care (01) ==
PROVIDERS: Nurse Practitioner Family; Emergency Provider Family Medicine; PCP Physician Assistant
DX: R07.9 Chest pain, unspecified (principal); R00.2 Palpitations; R94.6 Abnormal results of thyroid function studies; I10 Essential (primary) hypertension; E11.9 Type 2 diabetes mellitus without complications
CPT/HCPCS: 36415; 71045; 80053; 81001; 81025; 83880; 84443; 84484; 85025; 93005; 99283; A9270